=== PATIENT | male | born 1945 | race Caucasian/White ===

== ENCOUNTER 2020-10-27 14:10 | Outpatient (CLI) | payer MEDICARE, SELFPAY ==
[2020-10-27 15:06] LABS: Anion Gap 8 mmol/L (8-16); Blood Urea Nitrogen 14 mg/dL (9-20); Calcium 9.7 mg/dL (8.4-10.2); Carbon Dioxide 26 mmol/L (22-30); Chloride 106 mmol/L (98-107); Estimated Glomerular Filt Rate > 60; Glucose 106 mg/dL (75-110); Potassium 4.3 mmol/L (3.4-5.0); Sodium 140 mmol/L (137-145)
[2020-10-27 15:43] LABS: Hematocrit 44.9 % (42.0-52.0); Hemoglobin 14.7 g/dL (14.0-18.0); Mean Corpuscular HGB Conc 32.7 g/dl (32-36); Mean Corpuscular Hemoglobin 29.4 pg (26-34); Mean Corpuscular Volume 89.8 fl (80-100); Mean Platelet Volume 11.6 fl (7.4-10.4); Platelet Count Result 156 k/mm3 (150-375); Red Cell Distribution Width 13.2 % (11.5-14.5); White Blood Count 9.3 K/mm3 (4.5-10.0)
== END 2020-10-27 14:11 | disposition home or self-care (01) ==
LOC: ANHLAB 14:14
PROVIDERS: PCP Specialist; Visit Provider Specialist
DX: I48.20 Chronic atrial fibrillation, unspecified (principal)
CPT/HCPCS: 36415; 80048; 85027

== ENCOUNTER 2020-11-05 15:43 | Emergency (ER) | payer MEDICARE, SELFPAY ==
--- NOTE | ~2020-11-05 | XR_ITS ---
XR chest 2V DATE: 11/05/2020 16:36 INDICATION: Dyspnea. TECHNIQUE: AP and lateral views COMPARISON: 10/18/2013 and 07/29/2006 2 view chest examinations FINDINGS: No definite negative. Aortic arch calcification. No pulmonary infiltrate or consolidation, pleural effusion or pulmonary vascular congestion or pneumo thorax. Status post lower anterior cervical spine surgical fusion. Degenerative spurring of the thoracic spin e. IMPRESSION: Cardiomegaly Aortic atherosclerosis No active pulmonary disease Reviewed, dictated and finalized at location A.
[2020-11-05 15:48] VITALS: BP 167/89; PULSE 85; RESP 15; TEMP 36.9; O2SAT 95
--- NOTE | 2020-11-05 16:09 | ECG_ITS ---
Measurements Intervals [place] Rate: 69 P: [place]: 0 QRS: 15 QRSD: 115 T: 40 QT: 409 QTc: 439 Interpretive Statements ATRIAL FIBRILLATION LOW QRS VOLTAGE IN LIMB LEADS INTRAVENTRICULAR CONDUCTION DELAY DELAYED PRECORDIAL R/S TRANSITION BASELINE ARTIFACT- II, III, AVF, V6 ABNORMAL ECG Electronically Signed On 11-05-2020 17:54:13 CDT by Jackson Waters D.O.
[2020-11-05 16:16] VITALS: BP 144/84; PULSE 87; RESP 17; O2SAT 95
--- NOTE | 2020-11-05 16:17 | ED.SOB ---
HPI - SOB/Dyspnea General Chief Complaint: Shortness of Breath/Dyspnea Stated Complaint: diff breathing Time Seen by Provider: 11/05/20 15:53 Source: patient Mode of arrival: ambulatory Limitations: no limitations History of Present Illness HPI Narrative: This is a 75 year old male with history of CHF, hyperlipidemia, DM, sleep apnea who presents for evaluation of shortness of breath. He states he developed shortness of breath 2 weeks ago so he made appointment with his [facility], Dr. Lira. He states Dr. Lira placed him on furosemide 40 mg along with his spironolactone. He states he was feeling better until . He states he was placed in Entresto on and he has not felt well since. He reports shortness of breath and anxious. His symptoms are worse at night. He denies chest pain, nausea, vomiting, abdominal pain, fever or worsening leg edema. He reports chronic sob with exertion. He also notes his EF was 35 %. Related Data Home Medications Medication Instructions Recorded Confirmed carvedilol 25 mg tablet 25 mg PO Q12H 06/24/19 09/08/20 rivaroxaban 20 mg tablet 20 mg PO DAILY 06/24/19 09/08/20 spironolactone 25 mg tablet 25 mg PO DAILY 06/24/19 09/08/20 cholecalciferol (vitamin D3) 25 1,000 unit PO DAILY 06/25/19 09/08/20 mcg (1,000 unit) tablet diphenhydramine HCl 25 mg tablet 25 mg PO Q6H PRN 12/22/19 09/08/20 naproxen 220 mg-diphenhydramine 25 1 tablet PO QPM 12/22/19 09/08/20 mg tablet finasteride mg 11/05/20 furosemide 40 PO DAILY 11/05/20 sacubitril-valsartan [Entresto] 11/05/20 Allergies Allergy/AdvReac Type Severity Reaction Status Date / Time Penicillins Allergy Intermediate Rash Verified 11/05/20 15:53 clindamycin Allergy Unknown PT STATES Verified 11/05/20 15:53 BLISTERS ON MY PENIS Macrolide Antibiotics Allergy Unknown PT STATES Verified 11/05/20 15:53 BLISTERS ON MY PENIS vancomycin Allergy Unknown PT STATES Verified 11/05/20 15:53 BLISTERS ON MY PENIS Review of Systems Review of Systems: All systems reviewed & are unremarkable except as noted in HPI and below PMFSH Past Medical History Medical History (Updated 11/05/20 @ 19:10 by Chrissy Grant MD) Afib Asthma Depression Heart disease Hypertension Surgical History Surgical History (Updated 11/05/20 @ 16:22 by Chrissy Grant MD) H/O neck surgery Family History Family History Father Family history of heart disease in male family member before age 55 Social History Social History Smoking status: Never smoker Alcohol intake: current Gender identity (if verbalized by the patient): Male Exam Const: General: alert Nutritional Appearance: obese centrally obese Orientation/consciousness: patient oriented x3 Eyes: EOM: EOMs intact bilaterally Chest: Chest palpation & inspection: normal inspection of the chest Resp: Effort & Inspection: normal respiratory effort and no retractions Auscultation: clear to auscultation bilaterally Other: able to speak in complete sentences Cardio: Rate: regular rate Rhythm: regular rhythm Heart sounds: no murmurs GI: GI Palp: Yes Soft to palpation, No Tenderness to palpation present (GI) and No Guarding due to palpation present (GI) Auscultation: normal bowel sounds Skin: General skin exam: normal color Rashes: no rashes Neuro: General: patient oriented x3, moves all extremities and CN's II-XI intact bilaterally Extrem: General: normal to inspection and no pedal edema Psych: Mental Status: mental status grossly normal Affect: normal affect Course Reevaluation(s) Reevaluation #1: I have discussed with patient plan to discharge. He states he feels better. HE will follow up with PCP and [facility] Date: 11/05/20 Time: 19:07 Consultations Consultation #1: I Discussed
[2020-11-05 16:19] LABS: Basophils Absolute Auto 0.1 K/mm3 (0.0-0.1); Basophils Percent Auto 0.4 % (0.2-1.2); Eosinophils Absolute Auto 0.2 K/mm3 (0-0.3); Eosinophils Percent Auto 1.9 % (0-4.4); Hematocrit 48.5 % (42.0-52.0); Hemoglobin 16.4 g/dL (14.0-18.0); Immature Granulocyte Percent A 0.9 % (0-0.5); Lymphocytes Absolute Auto 2.09 K/mm3 (0.9-3.2); Lymphocytes Percent Auto 18.4 % (18.3-44.2); Mean Corpuscular HGB Conc 33.8 g/dl (32-36); Mean Corpuscular Hemoglobin 29.7 pg (26-34); Mean Corpuscular Volume 87.7 fl (80-100); Mean Platelet Volume 11.3 fl (7.4-10.4); Monocytes Absolute Auto 1.2 K/mm3 (0.1-0.6); Monocytes Percent Auto 10.9 % (2.6-8.5); Neutrophils Absolute Auto 7.7 K/mm3 (1.3-6.7); Neutrophils Percent Auto 67.5 % (45.5-73.1); Platelet Count Result 201 k/mm3 (150-375); Red Blood Count 5.53 M/mm3 (4.6-6.20); White Blood Count 11.4 K/mm3 (4.5-10.0)
[2020-11-05 16:29] LABS: Anion Gap 10 mmol/L (8-16); Blood Urea Nitrogen 18 mg/dL (9-20); Calcium 9.8 mg/dL (8.4-10.2); Carbon Dioxide 26 mmol/L (22-30); Chloride 104 mmol/L (98-107); Estimated CRCL calculation 91 ml/min; Estimated Glomerular Filt Rate > 60; Glucose 115 mg/dL (75-110); Potassium 4.3 mmol/L (3.4-5.0); Sodium 140 mmol/L (137-145)
[2020-11-05 16:34] LABS: Alveolar/Arterial O2 Gradient 20.7 mmHg; Base Excess ABG 3.5 mEq/l (+/-2.0); Carboxyhemoglobin 0.8 % THb (0-2.0); Fractional Inspired Oxygen 21 %; Methemoglobin ABG 0.3 %THb (0-1.5); Oxygen Content ABG 22.2 %vol (16.0-22.0); Oxygen Saturation ABG 98.2 % (95.0-100.0); Oxyhemoglobin 96.8 % THb (90.0-100.0); PCO2 ABG 26.7 mmHg (35.0-45.0); PO2 ABG 97.1 mmHg (80.0-100.0); PO2 FiO2 Ratio Arterial Blood 4.62 %; Reduced Hemoglobin 2.1 %THb (0-5.0); Total Hemoglobin 16.3 g/dL (12.0-18.0)
[2020-11-05 16:35] LABS: Device ROOM AIR; Modified Allen's Test Pass; Site Drawn RIGHT RADIAL; pH ABG 7.571 (7.350-7.450)
[2020-11-05 16:46] VITALS: BP 129/79; PULSE 70; RESP 15; O2SAT 99
[2020-11-05 16:50] LABS: NT Pro B Type Natriuretic Pept 251 pg/mL (5-100); Troponin I < 0.012 ng/mL (0.000-0.034)
[2020-11-05 16:52] LABS: INR 1.3; Partial Thromboplastin Time 31.5 SECONDS (22.3-36.8); Prothrombin Time 16.3 Seconds (11.1-14.7)
[2020-11-05 17:31] VITALS: BP 118/73; PULSE 68; RESP 12; O2SAT 100
[2020-11-05 18:01] VITALS: BP 149/71; PULSE 65; RESP 11; O2SAT 94
[2020-11-05 18:19] LABS: D Dimer 0.27 ug/mL (<0.48)
[2020-11-05] MEDS: LORazepam (*CRX) 0.5 MG TABLET PO (18:50)
[2020-11-05 19:45] VITALS: BP 117/73; PULSE 65; RESP 18; O2SAT 100
== END 2020-11-05 19:45 | disposition home or self-care (01) ==
PROVIDERS: Emergency Provider General Practice; PCP Specialist
DX: F41.9 Anxiety disorder, unspecified (principal); R06.00 Dyspnea, unspecified; I50.9 Heart failure, unspecified; E78.5 Hyperlipidemia, unspecified; E11.9 Type 2 diabetes mellitus without complications; G47.30 Sleep apnea, unspecified; Z79.4 Long term (current) use of insulin; Z79.01 Long term (current) use of anticoagulants; I48.91 Unspecified atrial fibrillation; J45.909 Unspecified asthma, uncomplicated; I70.0 Atherosclerosis of aorta; I45.9 Conduction disorder, unspecified
CPT/HCPCS: 36415; 36600; 71046; 80048; 82375; 82805; 83050; 83880; 84484; 85025; 85380; 85610; 85730; 93005; 99284; A9270

== ENCOUNTER 2020-12-04 19:34 | Emergency (ER) | payer MEDICARE, SELFPAY ==
--- NOTE | ~2020-12-04 | XR_ITS ---
EXAMINATION: XR chest 2V EXAM DATE: 12/04/2020 20:09 INDICATION: Weakness. Hypoglycemia. TECHNIQUE: Frontal and lateral projections of the chest obtained and reviewed. Comparison is made to prior examination from 11/05/2020. FINDINGS: There is left midlung zone granuloma. The lungs are otherwise clear. There are no pleural effusions. Cardiac silhouette is prominent but magnified on this AP technique. There is no pneumot horax suspected. There are mild bony degenerative changes. Cervical fusion hardware. Some bridging t horacic endplate osteophytes. There is aortic arteriosclerosis. There is no significant interval andrade ge. IMPRESSION: No acute cardiopulmonary findings. Reviewed, dictated and finalized at location G.
[2020-12-04 19:35] VITALS: BP 110/58; PULSE 58; RESP 12; TEMP 36.2; O2SAT 96
[2020-12-04 19:50] LABS: Glucose Point of Care 194 mg/dl (65-105)
--- NOTE | 2020-12-04 20:26 | ED.GENADULT ---
HPI - General Adult General Chief complaint: Altered Mental Status Stated complaint: AMS/ low bs Time Seen by Provider: 12/04/20 19:43 History of Present Illness HPI narrative: Patient is a 75-year-old male who presents ER with altered mental status. Patient reports he took 60 units of insulin as he was planning to eat dinner but then did not get around to it. He was found sweaty and altered by his son. EMS arrived and his Accu-Chek was reading is low. He received D10 is now awake alert and oriented x3. He has no complaints. Related Data Home Medications Medication Instructions Recorded Confirmed carvedilol 25 mg tablet 25 mg PO Q12H 06/24/19 12/01/20 rivaroxaban 20 mg tablet 20 mg PO DAILY 06/24/19 12/01/20 spironolactone 25 mg tablet 25 mg PO DAILY 06/24/19 12/01/20 cholecalciferol (vitamin D3) 25 1,000 unit PO DAILY 06/25/19 12/01/20 mcg (1,000 unit) tablet naproxen 220 mg-diphenhydramine 25 1 tablet PO QPM 12/22/19 12/01/20 mg tablet finasteride mg 11/05/20 12/01/20 furosemide 40 PO DAILY 11/05/20 12/01/20 sacubitril-valsartan [Entresto] 11/05/20 12/01/20 Allergies Allergy/AdvReac Type Severity Reaction Status Date / Time Penicillins Allergy Intermediate Rash Verified 12/01/20 11:01 clindamycin Allergy Unknown PT STATES Verified 12/01/20 11:01 BLISTERS ON MY PENIS Macrolide Antibiotics Allergy Unknown PT STATES Verified 12/01/20 11:01 BLISTERS ON MY PENIS vancomycin Allergy Unknown PT STATES Verified 12/01/20 11:01 BLISTERS ON MY PENIS Review of Systems Review of Systems: All systems reviewed & are unremarkable except as noted in HPI and below Constitutional: Constitutional: Denies chills, Denies fever(s) and Denies weakness Cardiovascular: Cardiovascular: Denies chest pain and Denies radiating jaw, neck or arm pain Respiratory: Respiratory: Denies cough and Denies dyspnea Gastrointestinal: Gastrointestinal: Denies abdominal pain, Denies nausea and Denies vomiting [facility] Past Medical History Medical History (Updated 12/04/20 @ 21:27 by David Masters MD) Afib Asthma Depression Heart disease Hypertension Pure hypercholesterolemia, unspecified Subclinical hypothyroidism Type 2 diabetes mellitus with hyperglycemia, with long-term current use of insulin Surgical History Surgical History H/O neck surgery Family History Family History Father Family history of heart disease in male family member before age 55 Social History Social History (Updated 12/01/20 @ 10:59 by Megan Tejeda MA) Smoking status: Never smoker Alcohol intake: current Substance use: current Substance use type: marijuana Other substance usage details: tablet and gimmes Gender identity (if verbalized by the patient): Male Exam Narrative: Exam Narrative: GENERAL: Well-appearing, well-nourished, and in no acute distress. HEAD: Normocephalic, atraumatic. ENT: Mucous membranes moist. NECK: Supple. CHEST: Clear to auscultation. No respiratory distress. HEART: Regular rate and rhythm. Normal peripheral pulses. ABDOMEN: Soft, nontender, nondistended. EXTREMITIES: Normal range of motion. 1+ edema. SKIN: Warm, dry, no rash. NEURO: Alert and oriented x3. Course Course Emergency Course: Patient is eating and drinking without issue. Blood sugar remains within normal limits. Discharge home. Vital Signs Vital signs: Vital Signs Temperature 97.1 F L 12/04/20 19:35 Pulse Rate 58 L 12/04/20 19:35 Respiratory Rate 12 12/04/20 19:35 Blood Pressure 110/58 L 12/04/20 19:35 Pulse Oximetry 96 12/04/20 19:35 Temperature 97.1 F L 12/04/20 19:35 Pulse Rate 58 L 12/04/20 19:35 Respiratory Rate 12 12/04/20 19:35 Blood Pressure 110/58 L 12/04/20 19:35 Pulse Oximetry 96 12/04/20 19:35 Medical Decision Making Vit
[2020-12-04 20:34] LABS: Basophils Percent Auto 0.3 % (0.2-1.2); Eosinophils Absolute Auto 0.3 K/mm3 (0-0.3); Hematocrit 44.3 % (42.0-52.0); Hemoglobin 15.1 g/dL (14.0-18.0); Immature Granulocyte Absolute 0.08 K/mm3 (0.00-0.031); Immature Granulocyte Percent A 0.7 % (0-0.5); Lymphocytes Absolute Auto 1.17 K/mm3 (0.9-3.2); Lymphocytes Percent Auto 9.6 % (18.3-44.2); Mean Corpuscular HGB Conc 34.1 g/dl (32-36); Mean Corpuscular Hemoglobin 30.3 pg (26-34); Mean Corpuscular Volume 88.8 fl (80-100); Mean Platelet Volume 10.7 fl (7.4-10.4); Monocytes Percent Auto 8.3 % (2.6-8.5); Neutrophils Absolute Auto 9.7 K/mm3 (1.3-6.7); Neutrophils Percent Auto 79.1 % (45.5-73.1); Platelet Count Result 154 k/mm3 (150-375); Red Blood Count 4.99 M/mm3 (4.6-6.20); Red Cell Distribution Width 13.2 % (11.5-14.5); White Blood Count 12.2 K/mm3 (4.5-10.0)
[2020-12-04 20:44] LABS: Anion Gap 8 mmol/L (8-16); Blood Urea Nitrogen 13 mg/dL (9-20); Calcium 8.9 mg/dL (8.4-10.2); Carbon Dioxide 28 mmol/L (22-30); Chloride 104 mmol/L (98-107); Estimated CRCL calculation 92 ml/min; Estimated Glomerular Filt Rate > 60; Glucose 92 mg/dL (75-110); Potassium 3.2 mmol/L (3.4-5.0); Sodium 140 mmol/L (137-145)
[2020-12-04 21:01] LABS: Glucose Point of Care 93 mg/dl (65-105)
[2020-12-04 21:45] VITALS: BP 121/79; PULSE 63; RESP 16; O2SAT 100
== END 2020-12-04 21:46 | disposition home or self-care (01) ==
PROVIDERS: Emergency Provider Emergency Medicine; PCP Internal Medicine
DX: E11.649 Type 2 diabetes mellitus with hypoglycemia without coma (principal); Z79.4 Long term (current) use of insulin; I48.91 Unspecified atrial fibrillation; J45.909 Unspecified asthma, uncomplicated; I11.0 Hypertensive heart disease with heart failure; I50.9 Heart failure, unspecified; E78.5 Hyperlipidemia, unspecified
CPT/HCPCS: 36415; 71046; 80048; 82948; 85025; 99283

== ENCOUNTER 2021-11-09 13:38 | Emergency (ER) | payer MEDICARE, SELFPAY ==
--- NOTE | 2021-11-09 13:42 | ED.GENADULT ---
HPI - General Adult General Chief complaint: Upper Respiratory Infection Stated complaint: Not Feeling Well Time Seen by Provider: 11/09/21 14:19 Source: patient and RN notes reviewed Mode of arrival: ambulatory Limitations: no limitations History of Present Illness HPI narrative: 76-year-old male with history of congestive heart failure, A. fib, diabetes presents with concern for 4-day history of abdominal pain, nausea, vomiting, diarrhea, shortness of breath. Reports he took a negative COVID test at home. Reports he took an antidiarrheal pill on Saturday which help with diarrhea, but is since returned. Reports he has been dry heaving today. Reports he has been sipping on water. Reports he feels hot, has not had a fever MD complaint: Nausea, vomiting, diarrhea Related Data Home Medications Medication Instructions Recorded Confirmed rivaroxaban 20 mg tablet (Xarelto) 20 mg PO DAILY 06/24/19 10/24/21 spironolactone 25 mg tablet 25 mg PO DAILY 06/24/19 10/24/21 finasteride 5 mg tablet mg 11/05/20 10/24/21 furosemide 40 mg tablet 40 PO DAILY 11/05/20 10/24/21 sertraline 25 mg tablet 25 mg PO DAILY 04/12/21 10/24/21 carvedilol 25 mg tablet 12.5 mg PO BID 10/24/21 10/24/21 cholecalciferol (vitamin D3) 25 1,000 unit PO .COMPLEX 10/24/21 10/24/21 mcg (1,000 unit) tablet (Vitamin D3) sacubitril 24 mg-valsartan 26 mg PO BID 10/24/21 10/24/21 tablet (Entresto) insulin lispro 200 unit/mL (3 mL) unit subcut 11/09/21 subcutaneous pen (Humalog KwikPen U-200 Insulin) trazodone 100 mg tablet tablet 11/09/21 Allergies Allergy/AdvReac Type Severity Reaction Status Date / Time Penicillins Allergy Intermediate Rash Verified 10/24/21 13:59 clindamycin Allergy Unknown PT STATES Verified 10/24/21 13:59 BLISTERS ON MY PENIS Macrolide Antibiotics Allergy Unknown PT STATES Verified 10/24/21 13:59 BLISTERS ON MY PENIS vancomycin Allergy Unknown PT STATES Verified 10/24/21 13:59 BLISTERS ON MY PENIS Review of Systems Review of Systems: CONSTITUTIONAL: Report malaise, sweats. Denies fever. EYES: Denies visual changes, redness, or discharge. ENT: Reports rhinorrhea. Denies congestion, sinus pain, otalgia and sore throat. CARDIOVASCULAR: Denies chest pain, palpitations, or edema. RESPIRATORY: Denies cough. Reports dyspnea. GASTROINTESTINAL: Reports abdominal pain, nausea, vomiting, diarrhea SKIN: Denies rash or itching. MUSCULOSKELETAL: Denies myalgia. NEUROLOGIC: Denies headache. All systems reviewed & are unremarkable except as noted in HPI and below PMFSH Past Medical History Medical History Afib Anxiety Asthma Congestive heart failure Depression Heart disease Hypertension Pure hypercholesterolemia, unspecified Subclinical hypothyroidism Type 2 diabetes mellitus with hyperglycemia, with long-term current use of insulin Surgical History Surgical History H/O neck surgery Family History Family History Father Family history of heart disease in male family member before age 55 Social History Social History Smoking status: Unknown if ever smoked Alcohol intake: current Alcohol use details: 3-4 per month Substance use: current Substance use type: marijuana Other substance usage details: tablet and gimmes Gender identity (if verbalized by the patient): Male Comments At time of signature, agree with nursing past medical, surgical, social and family history. There is no relevant family history pertinent to the presenting complaint Exam Narrative: GENERAL: Nontoxic-appearing and in no acute distress. HEAD: Normocephalic EYES: PERRLA, conjunctivae clear ENT: Nares clear, clear discharge. Mucous memb
[2021-11-09 13:44] VITALS: BP 103/68; PULSE 86; RESP 20; TEMP 36; O2SAT 99
[2021-11-09 14:14] LABS: Glucose Point of Care 204 mg/dl (65-105)
[2021-11-09] MEDS: ONDANSETRON HCL ODT 4 MG TABLET SUBLINGUAL (14:34)
== END 2021-11-09 15:07 | disposition short-term general hospital (02) ==
PROVIDERS: Emergency Provider Nurse Practitioner; PCP Internal Medicine
DX: R06.02 Shortness of breath (principal); Z20.822 Contact with and (suspected) exposure to COVID-19; E11.9 Type 2 diabetes mellitus without complications; Z79.4 Long term (current) use of insulin; I48.91 Unspecified atrial fibrillation; I11.0 Hypertensive heart disease with heart failure; I50.9 Heart failure, unspecified; E78.00 Pure hypercholesterolemia, unspecified; E03.8 Other specified hypothyroidism; F41.9 Anxiety disorder, unspecified; F32.A Depression, unspecified
CPT/HCPCS: 82948; 87426; 87804; 99212; A9270; C9803; G0463

== ENCOUNTER 2021-11-09 15:35 | Inpatient (IN) | payer MEDICARE, SELFPAY ==
--- NOTE | ~2021-11-09 | CT_ITS ---
EXAMINATION: CT abdomen pelvis wo con DATE: 11/09/2021 18:49 INDICATION: Upper abdominal pain radiating to back. Nausea, vomiting and diarrhea for 4 days. TECHNIQUE: Computed tomography (CT) of the abdomen and pelvis was performed without intravenous contr ast. Automated exposure control and iterative reconstruction technique were employed. Exam dose: 156 5.15 mGy-cm total exam DLP. COMPARISON: None. FINDINGS: The lung bases are clear. Heart size is normal. No pericardial or pleural effusion. 2.6 cm hepatic dome cyst. 11 mm lateral segment left hepatic cyst. No bile duct dilatation. Normal splenic size. No pancreatic mass lesion, calcification or ductal dilatation. Normal morphology of the adrenal glands. No renal mass lesion or urinary tract calculus or hydroureteronephrosis. There is prostate enlargement and calcification. Is moderate diffuse thickening of the urinary bladde r wall, likely due to the prostate enlargement. Small bilateral fat-containing inguinal hernias. Normal appendix. Fluid levels in the right colon are noted, consistent with history of diarrhea. No bowel obstruction, bowel wall thickening, pneumatosis or intraperitoneal free air is detected. There is prominent calcification of the celiac artery, superior mesenteric artery, renal arteries, es pecially on the right. There is prominent abdominal aortic calcification without aneurysm. No intraperitoneal or retroperitoneal or pelvic mass lesion or adenopathy or ascites. Very small fat-containing umbilical hernia. There is extensive degenerative change of the thoracic spine including diffuse idiopathic skeletal hy perostosis. There is prominent degenerative disc disease of the lumbar spine including severe degenerative disc d isease and mild retrolisthesis at L2-3, L3-4 and L4-5. IMPRESSION: No CT evidence of pancreatitis. Pancreatitis can occur in the absence of CT positive fin dings at the pancreas. Clinical correlation and correlation with appropriate serum enzymes is recomme nded. Levels are noted in the colon, consistent with history of diarrhea; no bowel obstruction Hepatic cysts Prostate enlargement and moderate thickening of the urinary bladder wall Reviewed, dictated and finalized at Location [facility]. Reviewed, dictated and finalized at location A. IMPRESSION: No CT evidence of pancreatitis. Pancreatitis can occur in the abse nce of CT positive findings at the pancreas. Clinical correlation and correlati on with appropriate serum enzymes is recommended. Levels are noted in the colon, consistent with history of diarrhea; no bowel ob struction Hepatic cysts Prostate enlargement and moderate thickening of the urinary bladder wall
--- NOTE | ~2021-11-09 | XR_ITS ---
XR chest 2V DATE: 11/09/2021 18:56 INDICATION: Shortness of breath TECHNIQUE: AP and lateral views COMPARISON: 12/04/2020 AP and lateral chest FINDINGS: Normal heart size. There is aortic calcification. No hilar or mediastinal enlargement. N o pulmonary infiltrate or consolidation, pulmonary vascular congestion or pleural effusion or pneumot horax. Status post anterior cervical spine surgical fusion. Degenerative spurring of the thoracic spine. IMPRESSION: No active cardiopulmonary disease Reviewed, dictated and finalized at location A.
[2021-11-09 15:57] VITALS: BP 105/58; PULSE 81; RESP 20; TEMP 36.6; O2SAT 100
--- NOTE | 2021-11-09 16:05 | ECG_ITS ---
Measurements Intervals [place] Rate: 74 P: [place]: 0 QRS: -17 QRSD: 110 T: 64 QT: 407 QTc: 454 Interpretive Statements ATRIAL FIBRILLATION LOW QRS VOLTAGE IN EXTREMITY LEADS [QRS DEFLECTION < 0.5 mV IN LIMB LEADS] POOR R-WAVE PROGRESSION CANNOT RULE OUT OLD INFERIOR MYOCARDIAL INFARCTION COMPARED TO ECG 11/05/2020 15:51:34 NO SIGNIFICANT CHANGE Electronically Signed On 11-09-2021 20:41:01 CDT by Kamilla Emmanuel M.D.
[2021-11-09 16:23] LABS: Basophils Percent Auto 0.1 % (0.2-1.2); Eosinophils Absolute Auto 0.2 K/mm3 (0-0.3); Eosinophils Percent Auto 1.6 % (0-4.4); Hematocrit 48.9 % (42.0-52.0); Hemoglobin 16.6 g/dL (14.0-18.0); Immature Granulocyte Absolute 0.15 K/mm3 (0.00-0.031); Immature Granulocyte Percent A 1.1 % (0-0.5); Lymphocytes Absolute Auto 1.42 K/mm3 (0.9-3.2); Lymphocytes Percent Auto 10.1 % (18.3-44.2); Mean Corpuscular HGB Conc 33.9 g/dl (32-36); Mean Corpuscular Hemoglobin 30.3 pg (26-34); Mean Corpuscular Volume 89.2 fl (80-100); Mean Platelet Volume 10.8 fl (7.4-10.4); Monocytes Absolute Auto 1.4 K/mm3 (0.1-0.6); Monocytes Percent Auto 9.6 % (2.6-8.5); Neutrophils Percent Auto 77.5 % (45.5-73.1); Platelet Count Result 232 k/mm3 (150-375); Red Blood Count 5.48 M/mm3 (4.6-6.20); Red Cell Distribution Width 13.1 % (11.5-14.5); White Blood Count 14.1 K/mm3 (4.5-10.0)
[2021-11-09 17:10] LABS: Alanine Aminotransferase 19 U/L (6-50); Albumin Level 4.6 g/dL (3.5-5.1); Alkaline Phosphatase 53 U/L (38-126); Anion Gap 11 mmol/L (8-16); Aspartate Amino Transferase 26 U/L (17-59); Blood Urea Nitrogen 31 mg/dL (9-20); Calcium 9.1 mg/dL (8.4-10.2); Carbon Dioxide 23 mmol/L (22-30); Chloride 101 mmol/L (98-107); Estimated CRCL calculation 62 ml/min; Estimated Glomerular Filt Rate 49; Glucose 207 mg/dL (65-110); Lipase 1085 U/L (23-300); Sodium 135 mmol/L (137-145)
[2021-11-09 17:26] LABS: Bilirubin,Total 1.2 mg/dL (0.2-1.3)
[2021-11-09 17:46] LABS: Appearance Urine Cloudy (Clear); Bilirubin Urine 1+ (Negative); Color Urine Yellow (Yellow); Glucose Urine UA Negative (Negative); Ketones Urine Trace mg/dL (Negative); Leukocyte Esterase Ur 1+ LEU/UL (Negative); Nitrate Urine Negative (Negative); Protein Urine Trace mg/dL (Negative); Urobilinogen Urine 0.2 mg/dL (<2.0); pH Urine 5.5 (5.0-9.0)
[2021-11-09 17:58] LABS: Amorphous Sediment Urine Few; Bacteria Urine Trace /hpf; Hyaline Casts Urine 30-49 /lpf; Mucus Urine Heavy /lpf; Squamous Epithelial Cell Urine Many /hpf (Few); WBC Clumps Urine Present /HPF; WBC Urine >75 /hpf
[2021-11-09 18:00] LABS: Add Urine Microscopic? YES; Blood Urine Trace-Intact (Negative)
--- NOTE | 2021-11-09 18:42 | ED.NAVMDI ---
HPI - Nausea/Vomiting/Diarrhea General Chief complaint: Nausea/Vomiting/Diarrhea Stated complaint: from UC, GI sx & SOB Time Seen by Provider: 11/09/21 18:15 Source: patient Mode of arrival: ambulatory Limitations: no limitations History of Present Illness HPI Narrative: This is a 76-year-old male that presents to the emergency department for abdominal pain and vomiting. Ongoing over the last couple of days. Does report some diarrhea as well. Reports he was recently started on Ozempic for his diabetes. He has been feeling more short of breath today. Denies fever, cough, or chest pain. Related Data Home Medications Medication Instructions Recorded Confirmed rivaroxaban 20 mg tablet (Xarelto) 20 mg PO DAILY 06/24/19 10/24/21 spironolactone 25 mg tablet 25 mg PO DAILY 06/24/19 10/24/21 finasteride 5 mg tablet mg 11/05/20 10/24/21 furosemide 40 mg tablet 40 PO DAILY 11/05/20 10/24/21 sertraline 25 mg tablet 25 mg PO DAILY 04/12/21 10/24/21 carvedilol 25 mg tablet 12.5 mg PO BID 10/24/21 10/24/21 cholecalciferol (vitamin D3) 25 1,000 unit PO .COMPLEX 10/24/21 10/24/21 mcg (1,000 unit) tablet (Vitamin D3) sacubitril 24 mg-valsartan 26 mg PO BID 10/24/21 10/24/21 tablet (Entresto) insulin lispro 200 unit/mL (3 mL) unit subcut 11/09/21 subcutaneous pen (Humalog KwikPen U-200 Insulin) trazodone 100 mg tablet tablet 11/09/21 Allergies Allergy/AdvReac Type Severity Reaction Status Date / Time Penicillins Allergy Intermediate Rash Verified 11/09/21 19:37 clindamycin Allergy Unknown PT STATES Verified 11/09/21 19:37 BLISTERS ON MY PENIS Macrolide Antibiotics Allergy Unknown PT STATES Verified 11/09/21 19:37 BLISTERS ON MY PENIS vancomycin Allergy Unknown PT STATES Verified 11/09/21 19:37 BLISTERS ON MY PENIS Review of Systems Review of Systems: CONSTITUTIONAL: Denies fever CARDIOVASCULAR: Denies chest pain, or edema. RESPIRATORY: Reports dyspnea. GASTROINTESTINAL: Reports abdominal pain, nausea, vomiting, and diarrhea. GENITOURINARY: Denies dysuria All systems reviewed & are unremarkable except as noted in HPI and below PMFSH Past Medical History Medical History Afib Anxiety Asthma Congestive heart failure Depression Heart disease Hypertension Pure hypercholesterolemia, unspecified Subclinical hypothyroidism Type 2 diabetes mellitus with hyperglycemia, with long-term current use of insulin Surgical History Surgical History H/O neck surgery Family History Family History Father Family history of heart disease in male family member before age 55 Social History Social History Smoking status: Unknown if ever smoked Alcohol intake: current Alcohol use details: 3-4 per month Substance use: current Substance use type: marijuana Other substance usage details: tablet and gimmes Gender identity (if verbalized by the patient): Male Exam Narrative: GENERAL: Well-appearing, well-nourished, and in no acute distress. HEAD: Normocephalic, atraumatic. EYES: EOMI. CHEST: Clear to auscultation. No respiratory distress. No wheezes rales or rhonchi HEART: Regular rate and rhythm. No murmur heard. Normal peripheral pulses. ABDOMEN: Soft, nondistended, normal active bowel sounds. Tender to palpation in epigastrium, without guarding EXTREMITIES: Normal range of motion. No edema. SKIN: Warm, dry, no rash. NEURO: No focal deficits. Alert and oriented x3. PSYCH: Normal mood and affect Course Consultations Consultation #1: Spoke with hospitalist about patient and work-up who accepts admission Date: 11/09/21 Vital Signs Vital signs: Vital Signs Temperature 97.9 F 11/09/21 15:57 Pulse Rate
[2021-11-09 19:02] VITALS: BP 88/63; PULSE 84; RESP 16; TEMP 36.6; O2SAT 98
[2021-11-09 19:17] VITALS: BP 100/70; PULSE 83; RESP 16; O2SAT 99
[2021-11-09] MEDS: PROCHLORPERAZINE EDISYLATE 10 MG/2 ML VIAL IV PUSH (19:37)
[2021-11-09] MEDS: SODIUM CHLORIDE 0.9% IV 500 ML 999 ML IV CONT (19:37)
[2021-11-09 19:48] LABS: NT Pro B Type Natriuretic Pept 238 pg/mL (5-100)
[2021-11-09 19:57] VITALS: BP 110/70
[2021-11-09 21:07] VITALS: BP 133/73; PULSE 78; RESP 18; O2SAT 98
[2021-11-09] MEDS: SODIUM CHLORIDE 0.9% IV 1,000 ML 500 ML IV CONT (21:08)
[2021-11-09 21:14] LABS: Glucose Point of Care 185 mg/dl (65-105)
--- NOTE | 2021-11-09 21:50 | ADMGEN ---
This patient, Mark Gonzalez, was admitted to 3 [facility] Surg Room 320-01. Patient/family oriented to hospital policies and general routines including ID bracelet, bed and alarms, visiting hours, pain management, procedures, bathroom and other care routines, personal items, smoking policy, room service/diet, and visiting hours. Information on how to activate the Rapid Response Team has been discussed. Patient/Family are encouraged to report perceived risks to care and to ask questions if they do not understand what they are told or what they should do.
[2021-11-09 22:00] VITALS: BP 127/77; PULSE 89; RESP 16; TEMP 36.2; O2SAT 100
[2021-11-09 22:30] VITALS: BMI 40.8
[2021-11-09] MEDS: SODIUM CHLORIDE 0.9% IV 1,000 ML 125 ML IV CONT (23:00)
[2021-11-10 05:07] VITALS: BP 111/57; PULSE 68; RESP 16; TEMP 36.2; O2SAT 98
--- NOTE | 2021-11-10 05:52 | PM.IMHP ---
H&P: HPI History of Present Illness Date/Time: 11/10/21 05:52 Chief Complaint: Nausea vomiting and diarrhea since Saturday Narrative: 76-year-old male with past medical history of CHF, chronic atrial fibrillation, insulin-dependent diabetes mellitus, and BPH who presented to the ER with nausea vomiting and diarrhea. The patient reports that he was started on Ozempic 2 weeks ago. On Saturday he the did his 1st full dose of medications. On Saturday he subsequently developed severe intractable nausea and vomiting after his several days of vomiting he proceeded to have dry heaves. He has not had any bilious emesis or coffee-ground emesis. He did have accompanying severe diarrhea with watery stools. He is having stools multiple times a day too numerous to count. Over the last couple of days he has noticed some blood on the toilet paper but has associated excoriation of his perineal tissues. He thinks he also has history of hemorrhoids as well. He has been having some lightheadedness with standing over the last couple of days but that is improved after IV fluids in the ER. The ER had reported the patient was having epigastric abdominal pain. The patient actually denies having significant epigastric abdominal pain until after he had episodes of vomiting. Instead most of his abdominal pain was generalized in the periumbilical and lower quadrant since was crampy in nature and proceeded episodes of diarrhea. He denies any fevers or chills or recent ill contacts. The patient reports his last hemoglobin A1c was actually 6.5 prior to Ozempic initiation. He was started on Ozempic to in an effort to help with potential weight loss. Review of Systems Review of Systems: 12 systems were reviewed with pertinent positives and negatives per HPI. Except as documented in the HPI, all other systems were reviewed and are negative. [facility] Past Medical History Medical History Anxiety Asthma Chronic atrial fibrillation On Xarelto. With multiple followed attempts at cardioversion. Congestive heart failure Echocardiogram spring 2020 EF 35-40% without significant valvular abnormality Depression Heart disease Hypertension Meralgia paresthetica of left side Morbid obesity with BMI of 40.0-44.9, adult Pure hypercholesterolemia, unspecified Subclinical hypothyroidism Type 2 diabetes mellitus Hemoglobin A1c 6.5 10/24/2021 Surgical History Surgical History H/O neck surgery Family History Family History Father Family history of heart disease in male family member before age 55 Social History Social History (Updated 11/11/21 @ 00:17 by Georgina Hooper DO) Social History: Code status: Full code Healthcare power of tearer: Gurpreet (oldest son) Smoking status: Never smoker Second hand tobacco smoke exposure: No Alcohol intake: current Alcohol use details: 3-4 per month Substance use: current Substance use type: marijuana Additional living arrangements comments: He has been for several years. He lives in his own home. 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 Gender identity (if verbalized by the patient): Male Spiritual care concerns: No Meds Home Medications and Allergies Home Medications Medication Instructions Recorded Confirmed Type rivaroxaban 20 mg tablet (Xarelto) 20 mg PO HS 06/24/19 11/09/21 History spironolactone 25 mg tablet 25 mg PO DAILY 06/24/19 11/09/21 History finasteride 5 mg tablet 5 mg PO HS 11/05/20 11/09/21 History furosemide 40 mg tablet 40 mg PO DAILY 11/05/20 11/09/21 History sertraline 25 mg tablet 25 mg PO DAILY 04/12/21 11/09/21 History carvedilol 25 mg tablet 12.5 mg PO BID 10/24/21 11/09/21 History insulin glargine 100 unit/mL (3 60 unit subcut HS 11/09/21 11/09/21 History mL) subcutaneous
[2021-11-10 06:19] LABS: Hematocrit 44.3 % (42.0-52.0); Hemoglobin 15.5 g/dL (14.0-18.0); Mean Corpuscular Hemoglobin 30.4 pg (26-34); Mean Corpuscular Volume 86.9 fl (80-100); Mean Platelet Volume 10.8 fl (7.4-10.4); Platelet Count Result 184 k/mm3 (150-375); Red Cell Distribution Width 12.9 % (11.5-14.5); White Blood Count 9.6 K/mm3 (4.5-10.0)
[2021-11-10 06:50] LABS: Alanine Aminotransferase 12 U/L (6-50); Albumin Level 3.2 g/dL (3.5-5.1); Alkaline Phosphatase 25 U/L (38-126); Anion Gap 9 mmol/L (8-16); Aspartate Amino Transferase 22 U/L (17-59); Blood Urea Nitrogen 30 mg/dL (9-20); Calcium 7.3 mg/dL (8.4-10.2); Carbon Dioxide 18 mmol/L (22-30); Chloride 107 mmol/L (98-107); Estimated CRCL calculation 84 ml/min; Estimated Glomerular Filt Rate > 60; Glucose 155 mg/dL (65-110); Lipase 294 U/L (23-300); Potassium 3.6 mmol/L (3.4-5.0); Sodium 134 mmol/L (137-145)
[2021-11-10 08:00] VITALS: PULSE 68; RESP 16; O2SAT 98
[2021-11-10 08:08] LABS: Glucose Point of Care 191 mg/dl (65-105)
--- NOTE | 2021-11-10 08:25 | PM.IMPN ---
Progress Note: A&P Assessment and Plan (1) Vomiting and diarrhea: Code(s): R11.10 - Vomiting, unspecified; R19.7 - Diarrhea, unspecified Status: Acute Assessment and Plan: Patient presents with nausea, vomiting, and diarrhea since Saturday after his 1st dose of Ozempic on Saturday. Patient's ER labs were significant for mildly elevated lipase, which has since normalized. Patient continues to have persistent diarrhea. At this time it was thought that the likely cause is the patient Ozempic, however he did have an abnormal UA, and we are following for the culture report. A.m. labs Advanced his tolerated IV fluid resuscitation 100mls/hr (2) Abnormal urinalysis: Code(s): R82.90 - Unspecified abnormal findings in urine Status: Acute Assessment and Plan: UA was abnormal in the ER with leuk esterase, more than 75 urine wbc's, heavy mucus, and CT showed bladder wall thickening. Urine culture pending. He had leukocytosis of 14.1 yesterday on admission, lactic acid 2.0. Urine culture pending, will hold antibiotics at this time. (3) Elevated lipase: Code(s): R74.8 - Abnormal levels of other serum enzymes Status: Acute Assessment and Plan: Lipase yesterday 1085, today to 294 (normal). CT showed no evidence of pancreatitis, levels in the colon consistent with diarrhea, no bowel obstruction, prostate enlargement and moderate thickening of the urinary bladder wall. Continue IVF Trend lipase (4) Afib: Code(s): I48.91 - Unspecified atrial fibrillation Status: Acute Assessment and Plan: Patient with chronic AFIB on Rivaroxaban and carvedilol. EKG shows AFIB with normal rate. Will continue home meds at this time. 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 (6) Type 2 diabetes mellitus with hyperglycemia, with long-term current use of insulin: Code(s): E11.65 - Type 2 diabetes mellitus with hyperglycemia; Z79.4 - ad terminal makeup operator (current) use of insulin Status: Acute Assessment and Plan: Patient has been NPO, will hold insulin at this time until patient advances his diet. Accuchecks, mod dose SSI, diabetic diet once advanced. Continue to check and adjust insulin as diet is advanced. (7) Essential hypertension: Code(s): I10 - Essential (primary) hypertension Status: Acute Assessment and Plan: Holding lasix and spironolactone as patient was quite dry upon admission. Subjective Date/time seen: 11/10/21 08:25 Interval history: 76-year-old male with history of AFib, hypertension, diabetes, hypothyroidism, anxiety, who presents for nausea, vomiting, and diarrhea since Saturday after his first dose of Ozempic on Saturday. He continues to have diarrhea, but no nausea or vomiting. He denies chest pain, shortness a breath, lower extremity swelling. He was enjoying his clear liquid diet meal when I saw him. He had no questions for me at this time. Review of Systems Review of Systems: All systems reviewed & are unremarkable except as noted in HPI and below Exam Narrative: GENERAL APPEARANCE: Alert and oriented x 3, in no apparent distress. HEENT: PERRL, EOMI. Sclerae anicteric. Moist mucous membranes. NECK: Supple. No JVD or obvious carotid bruits. RESPIRATORY: Respirations are nonlabored. Breath sounds are equal and clear bilaterally. No wheezes, Rhonchi, or rales. CARDIOVASCULAR: Regular rate and rhythm with normal S1-S2. No murmurs, gallops, or rubs. GASTROINTESTINAL: Soft, protuberant, and benign. No mass, tenderness, guarding, or rebound. No organomegaly or hernia. Bowel sounds are present. SKIN: Warm, dry, well perfused. Good turgor. No lesions, nodules, or rashes noted. EXTREMITIES: No cyanosis, clubbing, or edema. Radial and pedal pulses intact.
[2021-11-10 10:26] VITALS: PULSE 64
[2021-11-10] MEDS: carvediloL 12.5 MG TABLET PO ×2 (10:26→17:34)
[2021-11-10] MEDS: SERTRALINE HCL 25 MG TABLET PO (10:26)
[2021-11-10] MEDS: SODIUM CHLORIDE 0.9% IV 1,000 ML 100 ML IV CONT ×2 (10:30→21:10)
[2021-11-10 11:52] LABS: Glucose Point of Care 170 mg/dl (65-105)
--- NOTE | 2021-11-10 12:32 | PCCCNOTE ---
On 11/10/21, the student, [Misti Goodwin], provided care and completed [facility] documentation on this patient. I have reviewed the student's documentation and agree with the findings.
[2021-11-10 13:43] VITALS: BP 107/63; PULSE 72; RESP 18; TEMP 36.7; O2SAT 96
[2021-11-10 16:11] LABS: Glucose Point of Care 181 mg/dl (65-105)
[2021-11-10 17:34] VITALS: PULSE 66
[2021-11-10] MEDS: FINASTERIDE 5 MG TABLET PO (21:09)
[2021-11-10] MEDS: RIVAROXABAN 20 MG TABLET PO (21:09)
[2021-11-10] MEDS: traZODone HCL 50 MG TABLET 100 MG BY MOUTH (21:09)
[2021-11-10] MEDS: SIMVASTATIN 20 MG TABLET PO (21:10)
[2021-11-10] MEDS: INSULIN GLARGINE (*BKC) 100 UNITS/ML 60 UNITS SUB-Q (21:10)
[2021-11-10 21:13] LABS: Toxigenic C. Diff NEGATIVE (NEGATIVE)
[2021-11-10 21:50] VITALS: BP 117/67; PULSE 72; RESP 16; TEMP 37.2; O2SAT 100
[2021-11-11 00:51] LABS: Glucose Point of Care 187 mg/dl (65-105)
[2021-11-11 05:04] VITALS: BP 115/60; PULSE 75; RESP 16; TEMP 36.8; O2SAT 98
[2021-11-11] MEDS: DIPHENOXYLATE/ATROPINE (*CRX) 2.5 MG TABLET 1 TABLET PO ×4 (06:12→20:52)
[2021-11-11 08:15] LABS: Glucose Point of Care 186 mg/dl (65-105)
[2021-11-11 08:23] LABS: Basophils Percent Auto 0.3 % (0.2-1.2); Eosinophils Absolute Auto 0.1 K/mm3 (0-0.3); Eosinophils Percent Auto 1.3 % (0-4.4); Hematocrit 46.7 % (42.0-52.0); Hemoglobin 16.1 g/dL (14.0-18.0); Immature Granulocyte Absolute 0.14 K/mm3 (0.00-0.031); Immature Granulocyte Percent A 1.3 % (0-0.5); Lymphocytes Absolute Auto 1.13 K/mm3 (0.9-3.2); Lymphocytes Percent Auto 10.2 % (18.3-44.2); Mean Corpuscular HGB Conc 34.5 g/dl (32-36); Mean Corpuscular Hemoglobin 30.1 pg (26-34); Mean Corpuscular Volume 87.3 fl (80-100); Mean Platelet Volume 10.3 fl (7.4-10.4); Monocytes Percent Auto 9.2 % (2.6-8.5); Neutrophils Absolute Auto 8.7 K/mm3 (1.3-6.7); Neutrophils Percent Auto 77.7 % (45.5-73.1); Platelet Count Result 174 k/mm3 (150-375); Red Blood Count 5.35 M/mm3 (4.6-6.20); Red Cell Distribution Width 13.2 % (11.5-14.5); White Blood Count 11.1 K/mm3 (4.5-10.0)
[2021-11-11 08:34] LABS: Alanine Aminotransferase 12 U/L (6-50); Albumin Level 2.8 g/dL (3.5-5.1); Alkaline Phosphatase 41 U/L (38-126); Anion Gap 9 mmol/L (8-16); Aspartate Amino Transferase 12 U/L (17-59); Bilirubin,Total 0.7 mg/dL (0.2-1.3); Blood Urea Nitrogen 19 mg/dL (9-20); Calcium 7.3 mg/dL (8.4-10.2); Carbon Dioxide 17 mmol/L (22-30); Chloride 108 mmol/L (98-107); Estimated CRCL calculation 93 ml/min; Estimated Glomerular Filt Rate > 60; Glucose 190 mg/dL (65-110); Lipase 304 U/L (23-300); Potassium 3.2 mmol/L (3.4-5.0); Sodium 134 mmol/L (137-145)
--- NOTE | 2021-11-11 09:03 | PM.IMPN ---
Progress Note: A&P Assessment and Plan (1) Vomiting and diarrhea: Code(s): R11.10 - Vomiting, unspecified; R19.7 - Diarrhea, unspecified Status: Acute Assessment and Plan: Patient presents with nausea, vomiting, and diarrhea since Saturday after his 1st dose of Ozempic on Saturday. Patient's ER labs were significant for mildly elevated lipase, which has since normalized. Patient continues to have persistent diarrhea. He did not eat any of his dinner. At this time it was thought that the likely cause is the patient Ozempic, vs UTI w/ GBS. A.m. labs Diet has been advanced but he did not tolerate this. I have added clear Ensure to his meals, which he believes he can tolerate. IV fluid resuscitation 100mls/hr will continue given his continued GI losses. Zofran added PRN for nausea- Will check EKG for QT prolongation with levaquin. C-Diff negative. Stool cultures pending. Will order blood cultures given recent deterioration of symptoms. (2) Abnormal urinalysis: Code(s): R82.90 - Unspecified abnormal findings in urine Status: Acute (3) Elevated lipase: Code(s): R74.8 - Abnormal levels of other serum enzymes Status: Acute Assessment and Plan: Lipase 304. CT showed no evidence of pancreatitis, levels in the colon consistent with diarrhea, no bowel obstruction, prostate enlargement and moderate thickening of the urinary bladder wall. Continue IVF Trend lipase Patient has continued nausea and vomiting. (4) Afib: Code(s): I48.91 - Unspecified atrial fibrillation Status: Acute Assessment and Plan: Patient with chronic AFIB on Rivaroxaban and carvedilol. He is well rate controlled at this time. EKG shows AFIB with normal rate. Will continue to monitor. 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 (6) Type 2 diabetes mellitus with hyperglycemia, with long-term current use of insulin: Code(s): E11.65 - Type 2 diabetes mellitus with hyperglycemia; Z79.4 - supervisor intermediates (current) use of insulin Status: Acute Assessment and Plan: Patient has is still not tolerating PO intake at this time, will hold insulin at this time until patient advances his diet. Accuchecks, mod dose SSI, diabetic diet once advanced. Continue to check and adjust insulin as diet is advanced. (7) Essential hypertension: Code(s): I10 - Essential (primary) hypertension Status: Acute Assessment and Plan: Holding lasix and spironolactone as patient was quite dry upon admission. (8) UTI (urinary tract infection): Code(s): N39.0 - Urinary tract infection, site not specified Status: Acute Assessment and Plan: Today, patient endorses burning with urination and difficulty initiating a stream. Urine culture showed group B strep. UA was abnormal in the ER with leuk esterase, more than 75 urine wbc's, heavy mucus, and CT showed bladder wall thickening. WBC 11 today. Levofloxacin started given patient's PCN allergy. Continue to trend infectious markers. Subjective Date/time seen: 11/11/21 09:03 Interval history: 76-year-old male with history of AFib, hypertension, diabetes, hypothyroidism, anxiety, who presents for nausea, vomiting, and diarrhea since Saturday after his first dose of Ozempic on Saturday. He continues to have diarrhea, but no nausea or vomiting. He denies chest pain, shortness a breath, lower extremity swelling. He is having worse nausea and dry heaves today, and his diarrhea continues. He is not able to tolerate a full diet for breakfast and has no appetite for lunch. He did say he would try Ensure drinks if we could provide those. Review of Systems Review of Systems: All systems reviewed & are unremarkable except as noted in HP
[2021-11-11 10:48] VITALS: PULSE 83
[2021-11-11] MEDS: carvediloL 12.5 MG TABLET PO ×2 (10:48→18:24)
[2021-11-11] MEDS: SODIUM CHLORIDE 0.9% IV 1,000 ML 100 ML IV CONT ×2 (10:49→22:45)
[2021-11-11 12:14] LABS: Glucose Point of Care 211 mg/dl (65-105)
[2021-11-11] MEDS: INSULIN ASPART (*BKC) 100 UNITS/ML SUB-Q (12:18)
[2021-11-11] MEDS: SERTRALINE HCL 25 MG TABLET PO (12:18)
[2021-11-11 14:00] VITALS: BP 119/87; PULSE 83; RESP 20; TEMP 35.7; O2SAT 98
[2021-11-11] MEDS: ONDANSETRON INJ 4 MG/2 ML VIAL IV PUSH (14:14)
[2021-11-11 17:01] LABS: Glucose Point of Care 193 mg/dl (65-105)
--- NOTE | 2021-11-11 18:58 | ECG_ITS ---
Measurements Intervals [place] Rate: 79 P: [place]: 0 QRS: -15 QRSD: 107 T: 45 QT: 411 QTc: 472 Interpretive Statements ATRIAL FIBRILLATION WITH ABERRANT CONDUCTION OR VENTRICULAR PREMATURE COMPLEXES LOW QRS VOLTAGE [QRS DEFLECTION < 0.5/1.0 mV IN LIMB/CHEST LEADS] POSSIBLE ANTERIOR MYOCARDIAL INFARCTION , PROBABLY OLD [30 ms Q WAVE IN V3/V4, OR R < 0.2 mV IN V4] ABNORMAL ECG COMPARED TO ECG 11/09/2021 16:08:12 ABERRANT CONDUCTION OF SUPRAVENTRICULAR BEAT(S) NOW PRESENT Electronically Signed On 11-12-2021 11:00:32 CDT by Stevie Mota M.D.
[2021-11-11] MEDS: INSULIN GLARGINE (*BKC) 100 UNITS/ML 60 UNITS SUB-Q (20:53)
[2021-11-11] MEDS: RIVAROXABAN 20 MG TABLET PO (20:54)
[2021-11-11] MEDS: FINASTERIDE 5 MG TABLET PO (20:54)
[2021-11-11] MEDS: SIMVASTATIN 20 MG TABLET PO (20:54)
[2021-11-11] MEDS: traZODone HCL 50 MG TABLET 100 MG BY MOUTH (20:54)
[2021-11-11 22:00] VITALS: BP 102/50; PULSE 74; RESP 18; TEMP 36.1; O2SAT 94
[2021-11-11 22:08] LABS: Glucose Point of Care 225 mg/dl (65-105)
[2021-11-12] VITALS (7 sets, daily range): BP systolic 100–120; BP diastolic 44–72; PULSE 64–89; RESP 16–20; TEMP 36.5–37.5; O2SAT 95–99
[2021-11-12] MEDS: ONDANSETRON INJ 4 MG/2 ML VIAL IV PUSH ×3 (01:00→17:35)
[2021-11-12] MEDS: DIPHENOXYLATE/ATROPINE (*CRX) 2.5 MG TABLET 1 TABLET PO ×3 (01:00→17:34)
[2021-11-12 06:42] LABS: Basophils Absolute Auto 0.1 K/mm3 (0.0-0.1); Basophils Percent Auto 0.5 % (0.2-1.2); Eosinophils Absolute Auto 0.3 K/mm3 (0-0.3); Eosinophils Percent Auto 2.6 % (0-4.4); Hematocrit 47.6 % (42.0-52.0); Hemoglobin 16.3 g/dL (14.0-18.0); Immature Granulocyte Absolute 0.23 K/mm3 (0.00-0.031); Immature Granulocyte Percent A 2.3 % (0-0.5); Lymphocytes Absolute Auto 1.81 K/mm3 (0.9-3.2); Lymphocytes Percent Auto 18.4 % (18.3-44.2); Mean Corpuscular HGB Conc 34.2 g/dl (32-36); Mean Corpuscular Hemoglobin 30.4 pg (26-34); Mean Corpuscular Volume 88.8 fl (80-100); Mean Platelet Volume 10.5 fl (7.4-10.4); Monocytes Absolute Auto 1.1 K/mm3 (0.1-0.6); Monocytes Percent Auto 11.4 % (2.6-8.5); Neutrophils Absolute Auto 6.4 K/mm3 (1.3-6.7); Neutrophils Percent Auto 64.8 % (45.5-73.1); Platelet Count Result 188 k/mm3 (150-375); Red Blood Count 5.36 M/mm3 (4.6-6.20); Red Cell Distribution Width 13.5 % (11.5-14.5); White Blood Count 9.8 K/mm3 (4.5-10.0)
[2021-11-12 06:59] LABS: Alanine Aminotransferase 12 U/L (6-50); Albumin Level 2.6 g/dL (3.5-5.1); Alkaline Phosphatase 30 U/L (38-126); Anion Gap 8 mmol/L (8-16); Aspartate Amino Transferase 13 U/L (17-59); Bilirubin,Total 0.6 mg/dL (0.2-1.3); Blood Urea Nitrogen 26 mg/dL (9-20); Carbon Dioxide 15 mmol/L (22-30); Chloride 108 mmol/L (98-107); Estimated CRCL calculation 66 ml/min; Estimated Glomerular Filt Rate 54; Glucose 177 mg/dL (65-110); Potassium 3.4 mmol/L (3.4-5.0); Sodium 131 mmol/L (137-145)
[2021-11-12 08:13] LABS: Glucose Point of Care 187 mg/dl (65-105)
[2021-11-12] MEDS: SERTRALINE HCL 25 MG TABLET PO (09:15)
[2021-11-12] MEDS: carvediloL 12.5 MG TABLET PO ×2 (09:15→17:34)
[2021-11-12] MEDS: SODIUM CHLORIDE 0.9% IV 1,000 ML 100 ML IV CONT ×2 (11:18→20:37)
[2021-11-12 12:07] LABS: Glucose Point of Care 204 mg/dl (65-105)
--- NOTE | 2021-11-12 15:38 | PM.IMPN ---
Progress Note: A&P Assessment and Plan (1) UTI (urinary tract infection): Code(s): N39.0 - Urinary tract infection, site not specified Status: Acute Assessment and Plan: Today, patient endorses burning with urination and difficulty initiating a stream. Urine culture showed group B strep. UA was abnormal in the ER with leuk esterase, more than 75 urine wbc's, heavy mucus, and CT showed bladder wall thickening. WBC 11 today. Levofloxacin started given patient's PCN allergy. Continue to trend infectious markers. (2) Vomiting and diarrhea: Code(s): R11.10 - Vomiting, unspecified; R19.7 - Diarrhea, unspecified Status: Acute Assessment and Plan: Patient presents with nausea, vomiting, and diarrhea since Saturday after his 1st dose of Ozempic on Saturday. Patient's ER labs were significant for mildly elevated lipase, which has since normalized. Patient continues to have persistent diarrhea. He did not eat any of his dinner. At this time it was thought that the likely cause is the patient Ozempic, vs UTI w/ GBS. A.m. labs Diet has been advanced and he has started to have some PO intake today. IV fluid resuscitation 100mls/hr will continue given his continued GI losses, hyponatremia, and worsened BUN after being in self-induced NPO status yesterday. Zofran added PRN for nausea- EKG showed no QT prolongation. C-Diff negative. Stool cultures pending. Blood cultures showed no growth. (3) Elevated lipase: Code(s): R74.8 - Abnormal levels of other serum enzymes Status: Acute Assessment and Plan: Lipase 304. CT showed no evidence of pancreatitis, levels in the colon consistent with diarrhea, no bowel obstruction, prostate enlargement and moderate thickening of the urinary bladder wall. Continue IVF Trend lipase Patient has continued nausea and vomiting. (4) Afib: Code(s): I48.91 - Unspecified atrial fibrillation Status: Acute Assessment and Plan: Patient with chronic AFIB on Rivaroxaban and carvedilol. He is well rate controlled at this time. EKG shows AFIB with normal rate. Will continue to monitor. Will continue home meds at this time (5) custodial current use of anticoagulant: Code(s): Z79.01 - terminal operations supervisor (current) use of anticoagulants Status: Acute Assessment and Plan: Rivaroxaban, will continue. (6) Type 2 diabetes mellitus with hyperglycemia, with long-term current use of insulin: Code(s): E11.65 - Type 2 diabetes mellitus with hyperglycemia; Z79.4 - custodial (current) use of insulin Status: Acute Assessment and Plan: Patient has is still not tolerating PO intake at this time, will hold insulin at this time until patient advances his diet. Accuchecks, mod dose SSI, diabetic diet once advanced. Continue to check and adjust insulin as diet is advanced. (7) Essential hypertension: Code(s): I10 - Essential (primary) hypertension Status: Acute Assessment and Plan: Holding lasix and spironolactone as patient was quite dry upon admission. Subjective Date/time seen: 11/12/21 15:38 Interval history: 76-year-old male with history of AFib, hypertension, diabetes, hypothyroidism, anxiety, who presents for nausea, vomiting, and diarrhea since Saturday after his first dose of Ozempic on Saturday. He continues to have diarrhea, but it is improving, and is slightly less loose today. His having some nausea, but it also has improved. He was able to tolerate his breakfast and ate about 50% of it. He continues to have poor PO intake, but this is is slowly improving. He denies blood in the stools, vomiting, abdominal pain, chest pain, shortness of breath, prabha syncope. Review of Systems Review of Systems: All systems reviewed & are unremarkable except as noted in HPI and below Exam Narrative: GENERAL APPEARANCE: Alert and oriented x 3, in no apparent distress. HEENT:
[2021-11-12 16:38] LABS: Glucose Point of Care 156 mg/dl (65-105)
[2021-11-12] MEDS: SODIUM CHLORIDE 500 MG TABLET PO (17:35)
[2021-11-12] MEDS: CALCIUM CARBONATE (OSCAL) 500 MG TABLET PO (17:35)
[2021-11-12] MEDS: traZODone HCL 50 MG TABLET 100 MG BY MOUTH (20:39)
[2021-11-12] MEDS: RIVAROXABAN 20 MG TABLET PO (20:39)
[2021-11-12] MEDS: INSULIN GLARGINE (*BKC) 100 UNITS/ML 60 UNITS SUB-Q (20:46)
[2021-11-12 23:22] LABS: Glucose Point of Care 158 mg/dl (65-105)
[2021-11-12] MEDS: FINASTERIDE 5 MG TABLET PO (23:47)
[2021-11-12] MEDS: SIMVASTATIN 20 MG TABLET PO (23:48)
[2021-11-13 06:00] VITALS: BP 108/50; PULSE 58; RESP 14; TEMP 36.9; O2SAT 97
[2021-11-13 06:15] LABS: Basophils Absolute Auto 0.1 K/mm3 (0.0-0.1); Basophils Percent Auto 0.5 % (0.2-1.2); Eosinophils Absolute Auto 0.5 K/mm3 (0-0.3); Eosinophils Percent Auto 4.7 % (0-4.4); Hematocrit 39.5 % (42.0-52.0); Hemoglobin 13.8 g/dL (14.0-18.0); Immature Granulocyte Absolute 0.22 K/mm3 (0.00-0.031); Immature Granulocyte Percent A 2.1 % (0-0.5); Lymphocytes Absolute Auto 2.23 K/mm3 (0.9-3.2); Lymphocytes Percent Auto 21.2 % (18.3-44.2); Mean Corpuscular HGB Conc 34.9 g/dl (32-36); Mean Corpuscular Hemoglobin 30.5 pg (26-34); Mean Corpuscular Volume 87.2 fl (80-100); Mean Platelet Volume 10.6 fl (7.4-10.4); Monocytes Absolute Auto 1.3 K/mm3 (0.1-0.6); Monocytes Percent Auto 12.6 % (2.6-8.5); Neutrophils Absolute Auto 6.2 K/mm3 (1.3-6.7); Neutrophils Percent Auto 58.9 % (45.5-73.1); Platelet Count Result 161 k/mm3 (150-375); Red Blood Count 4.53 M/mm3 (4.6-6.20); Red Cell Distribution Width 13.3 % (11.5-14.5); White Blood Count 10.5 K/mm3 (4.5-10.0)
[2021-11-13 06:20] LABS: Alanine Aminotransferase 11 U/L (6-50); Albumin Level 2.4 g/dL (3.5-5.1); Alkaline Phosphatase 32 U/L (38-126); Anion Gap 3 mmol/L (8-16); Aspartate Amino Transferase 13 U/L (17-59); Bilirubin,Total 0.5 mg/dL (0.2-1.3); Blood Urea Nitrogen 17 mg/dL (9-20); Carbon Dioxide 21 mmol/L (22-30); Chloride 111 mmol/L (98-107); Estimated CRCL calculation 93 ml/min; Estimated Glomerular Filt Rate > 60; Glucose 81 mg/dL (65-110); Sodium 135 mmol/L (137-145)
[2021-11-13 07:48] LABS: Glucose Point of Care 71 mg/dl (65-105)
--- NOTE | 2021-11-13 08:17 | PM.IMPN ---
Progress Note: A&P Assessment and Plan (1) Vomiting and diarrhea: Code(s): R11.10 - Vomiting, unspecified; R19.7 - Diarrhea, unspecified Status: Acute Assessment and Plan: Patient presents with nausea, vomiting, and diarrhea since Saturday after his 1st dose of Ozempic on Saturday. Patient's ER labs were significant for mildly elevated lipase, which has since normalized. Patient continues to have persistent voluminous diarrhea today, and his potassium was quite low. He was finally able to eat a full meal at breakfast today. I will add psyllium and probiotics to his regimen. Given continued liquid stools x 1 week, I have consulted GI on this patient and appreciate any additional recommendations. Continue current diet, add fiber/probiotic. IV fluid resuscitation 100mls/hr will continue given his continued GI losses. Zofran PRN for nausea- EKG showed no QT prolongation. C-Diff negative. Stool cultures pending. Blood cultures showed no growth. (2) UTI (urinary tract infection): Code(s): N39.0 - Urinary tract infection, site not specified Status: Acute Assessment and Plan: Patient endorsed burning with urination and difficulty initiating a stream. Urine culture showed group B strep. UA was abnormal in the ER with leuk esterase, more than 75 urine wbc's, heavy mucus, and CT showed bladder wall thickening. WBC 11 today. Levofloxacin day 3 today. Patient has a PCN allergy. WBC again slightly elevated today. (3) Elevated lipase: Code(s): R74.8 - Abnormal levels of other serum enzymes Status: Acute Assessment and Plan: Lipase [address] showed no evidence of pancreatitis, levels in the colon consistent with diarrhea, no bowel obstruction, prostate enlargement and moderate thickening of the urinary bladder wall. Continue IVF Trend lipase Patient has continued nausea and vomiting. (4) Afib: Code(s): I48.91 - Unspecified atrial fibrillation Status: Acute Assessment and Plan: Patient with chronic AFIB on Rivaroxaban and carvedilol. He is rate controlled at this time. Will continue to monitor. Will continue home meds (5) [facility] current use of anticoagulant: Code(s): Z79.01 - long term care administrator (current) use of anticoagulants Status: Acute Assessment and Plan: Rivaroxaban, will continue. (6) Type 2 diabetes mellitus with hyperglycemia, with long-term current use of insulin: Code(s): E11.65 - Type 2 diabetes mellitus with hyperglycemia; Z79.4 - [facility] (current) use of insulin Status: Acute Assessment and Plan: Patient is starting to tolerate PO intake. Glucose 81 today. Accuchecks, mod dose SSI, diabetic diet once advanced. Continue to check and adjust insulin as diet is advanced. (7) Essential hypertension: Code(s): I10 - Essential (primary) hypertension Status: Acute Assessment and Plan: Holding lasix and spironolactone as patient was quite dry upon admission, and continues to be normotensive as of 11/13. (8) Hypokalemia: Code(s): E87.6 - Hypokalemia Status: Acute Assessment and Plan: K 3.0 today. Likely due to ongoing GI losses. Will replenish with 40meq and recheck K in the evening. Plan Ca has been low at 7. Started OSCAL 500 BIDWM. Additional Plan Patient has been admitted as observation status. Subjective Date/time seen: 11/13/21 08:17 Interval history: 76-year-old male with history of AFib, hypertension, diabetes, hypothyroidism, anxiety, who presents for nausea, vomiting, and diarrhea since Saturday after his first dose of Ozempic on Saturday. He is having some nausea, but it also has improved. He was able to tolerate his breakfast today, but by the time of my exam, he had a pure liquid, voluminous stool. He denies fevers, chills, chest pain, shortness of breath. Review of Systems Review of Systems: All systems review
[2021-11-13 08:31] LABS: Lipase 151 U/L (23-300)
[2021-11-13] MEDS: POTASSIUM CHLORIDE 20 MEQ TABLET 40 MEQ PO (08:56)
[2021-11-13 08:57] VITALS: PULSE 55
[2021-11-13] MEDS: carvediloL 12.5 MG TABLET PO (08:57)
[2021-11-13] MEDS: SODIUM CHLORIDE 500 MG TABLET PO ×2 (08:57→17:42)
[2021-11-13] MEDS: CALCIUM CARBONATE (OSCAL) 500 MG TABLET PO ×2 (08:59→17:42)
[2021-11-13] MEDS: SERTRALINE HCL 25 MG TABLET PO (08:59)
[2021-11-13] MEDS: SODIUM CHLORIDE 0.9% IV 1,000 ML 100 ML IV CONT ×2 (09:00→18:53)
[2021-11-13 11:15] LABS: Glucose Point of Care 136 mg/dl (65-105)
--- NOTE | 2021-11-13 11:22 | PCPTNOTE ---
Spoke with RN patient was independent within the room without an assistive device. Spoke with patient, he stated that he does not have anything he would like assess and has been up moving within room. Hospitalist contacted and agreed to DC eval as long as care coordination didn't need eval. Per borough coordinator, patient does not need Evals for patient to return to [facility]. Orders discharged.
--- NOTE | 2021-11-13 12:05 | PCOTNOTE ---
Per Physical Therapist, who spoke with RN, patient was independent within the room without an assistive device. Spoke with patient, he stated that he does not have anything he would like assess and has been up moving within room. Hospitalist contacted and agreed to DC eval as long as care coordination didn't need eval. Per laboratory operations coordinator, patient does not need Evals for patient to return to [facility]. Orders to be canceled / discharged.
[2021-11-13] MEDS: SACCHAROMYCES BOULARDII 250 MG CAPSULE PO ×2 (13:40→17:42)
[2021-11-13 14:00] VITALS: BP 104/56; PULSE 52; RESP 19; TEMP 36.1; O2SAT 98
--- NOTE | 2021-11-13 15:18 | WPDGICN ---
Assessment and Plan Assessment and plan (1) Vomiting and diarrhea: Code(s): R11.10 - Vomiting, unspecified; R19.7 - Diarrhea, unspecified Status: Acute Assessment and Plan: Patient has vomiting and diarrhea that has been present for approximately 1 week. Now improving. The etiology for this is somewhat unclear. It began 1 week after taking a new medication, Ozempic, suggesting this may be intolerance of this new medication. Because of his profound reaction I would avoid this medication. It is also possible that vomiting and diarrhea related to his urinary tract infection. This is now improving while being placed on IV Levaquin. History of nausea vomiting diarrhea also raises the question of gastroenteritis which potentially could also be improving because of the Levaquin. Diabetes itself is known to cause delayed gastric emptying and diarrhea. Besides making patient more susceptible to infections. At this point however patient is tolerating diet dates diarrhea has improved to a significant degree. Would recommend completing course of antibiotics for a 7-10 day course. Advance diet as tolerated. No additional investigation appears warranted at this time. (2) Elevated lipase: Code(s): R74.8 - Abnormal levels of other serum enzymes Status: Acute Assessment and Plan: Elevated lipase noted at the time of him emergency room presentation but normalized the next day. Suggest this is spurious and likely related to his gastroenteritis. CT scan and fails to confer from pain otitis which appears unlikely given lack of tenderness and normal CT findings. No additional workup warranted. (3) Type 2 diabetes mellitus with hyperglycemia, with long-term current use of insulin: Code(s): E11.65 - Type 2 diabetes mellitus with hyperglycemia; Z79.4 - long term care phlebotomist (current) use of insulin Status: Acute Assessment and Plan: Diabetes of course raises the question of diabetic diarrhea. This could be long-term. If so this may improve with fiber supplementation. Strict control of diabetes and blood sugars are strongly encouraged. current Powell managed by primary care service (4) Afib: Code(s): I48.91 - Unspecified atrial fibrillation Status: Acute (5) long term care phlebotomist current use of anticoagulant: Code(s): Z79.01 - long term care phlebotomist (current) use of anticoagulants Status: Acute (6) UTI (urinary tract infection): Code(s): N39.0 - Urinary tract infection, site not specified Status: Acute Assessment and Plan: urinary tract infection now on Levaquin which may have the potential side benefit of treating any potential intestinal pathogens. (7) Congestive heart failure: Qualifiers: Heart failure type: systolic Heart failure chronicity: chronic Qualified Code(s): I50.22 - Chronic systolic (congestive) heart failure Code(s): I50.9 - Heart failure, unspecified Status: Acute (8) History of colon polyps: Code(s): Z86.010 - Personal history of colonic polyps Status: Acute Assessment and Plan: Colon polyps identified at time of endoscopy in 2019. Has also had previous history of polyps. If his medical condition allows continued follow-up at 5 year intervals encouraged GI Consult Note Consult date/time: 11/13/21 15:18 Reason for consult: Diarrhea HPI: Mark Gonzalez is a 76 year old male I am asked to see at the request of the hospitalist because of ongoing diarrhea. Patient is morbidly obese with a history of diabetes mellitus. He has underlying history of congestive heart failure and atrial fibrillation for which she is on chronic anticoagulation. Patient was started on Ozempic, One week prior to admission, in an attempt to decrease his use of insulin but also to hopefully aid with his weight loss attempts. patient reports 1 week ago he began to have nausea vomiting and diarrhea. He had rather significant freque
[2021-11-13 16:28] LABS: Glucose Point of Care 91 mg/dl (65-105)
[2021-11-13 17:16] LABS: Potassium 3.5 mmol/L (3.4-5.0)
[2021-11-13 20:00] VITALS: PULSE 61; RESP 18; O2SAT 97
[2021-11-13] MEDS: traZODone HCL 50 MG TABLET 100 MG BY MOUTH (20:43)
[2021-11-13] MEDS: PSYLLIUM SUGAR FREE POWDER PACKET 1 PACKET PO (20:43)
[2021-11-13] MEDS: RIVAROXABAN 20 MG TABLET PO (20:43)
[2021-11-13] MEDS: SIMVASTATIN 20 MG TABLET PO (20:43)
[2021-11-13] MEDS: FINASTERIDE 5 MG TABLET PO (20:44)
[2021-11-13 21:39] LABS: Glucose Point of Care 90 mg/dl (65-105)
[2021-11-13 22:00] VITALS: BP 108/50; PULSE 61; RESP 18; TEMP 36.1; O2SAT 97
[2021-11-14] MEDS: SODIUM CHLORIDE 0.9% IV 1,000 ML 100 ML IV CONT (05:29)
[2021-11-14 06:00] VITALS: BP 114/76; PULSE 55; RESP 18; TEMP 36.1; O2SAT 100
[2021-11-14 06:32] LABS: Basophils Absolute Auto 0.1 K/mm3 (0.0-0.1); Basophils Percent Auto 0.7 % (0.2-1.2); Eosinophils Absolute Auto 0.6 K/mm3 (0-0.3); Eosinophils Percent Auto 5.8 % (0-4.4); Hematocrit 39.3 % (42.0-52.0); Hemoglobin 13.5 g/dL (14.0-18.0); Immature Granulocyte Percent A 4.2 % (0-0.5); Lymphocytes Percent Auto 24.2 % (18.3-44.2); Mean Corpuscular HGB Conc 34.4 g/dl (32-36); Mean Corpuscular Hemoglobin 29.9 pg (26-34); Mean Corpuscular Volume 87.1 fl (80-100); Mean Platelet Volume 10.8 fl (7.4-10.4); Monocytes Percent Auto 10.6 % (2.6-8.5); Neutrophils Absolute Auto 5.2 K/mm3 (1.3-6.7); Neutrophils Percent Auto 54.5 % (45.5-73.1); Platelet Count Result 158 k/mm3 (150-375); Red Blood Count 4.51 M/mm3 (4.6-6.20); Red Cell Distribution Width 13.4 % (11.5-14.5); White Blood Count 9.5 K/mm3 (4.5-10.0)
[2021-11-14 06:45] LABS: Alanine Aminotransferase 14 U/L (6-50); Albumin Level 2.6 g/dL (3.5-5.1); Alkaline Phosphatase 35 U/L (38-126); Anion Gap 5 mmol/L (8-16); Aspartate Amino Transferase 21 U/L (17-59); Bilirubin,Total 0.4 mg/dL (0.2-1.3); Blood Urea Nitrogen 10 mg/dL (9-20); Calcium 7.4 mg/dL (8.4-10.2); Carbon Dioxide 20 mmol/L (22-30); Chloride 111 mmol/L (98-107); Estimated CRCL calculation 104 ml/min; Estimated Glomerular Filt Rate > 60; Glucose 78 mg/dL (65-110); Potassium 3.1 mmol/L (3.4-5.0); Sodium 136 mmol/L (137-145)
[2021-11-14 08:50] LABS: Glucose Point of Care 76 mg/dl (65-105)
[2021-11-14 08:51] VITALS: PULSE 64
[2021-11-14] MEDS: SACCHAROMYCES BOULARDII 250 MG CAPSULE PO ×2 (08:51→12:27)
[2021-11-14] MEDS: CALCIUM CARBONATE (OSCAL) 500 MG TABLET PO (08:51)
[2021-11-14] MEDS: SERTRALINE HCL 25 MG TABLET PO (08:51)
[2021-11-14] MEDS: carvediloL 12.5 MG TABLET PO (08:51)
[2021-11-14] MEDS: SODIUM CHLORIDE 500 MG TABLET PO (08:51)
--- NOTE | 2021-11-14 09:26 | PM.DS ---
DS: Admitting Diagnosis Discharge Date 11/14/2021 1600 Admitting Diagnosis Nausea/vomiting/diarrhea DS: Discharge Diagnosis Discharge Diagnosis (1) Vomiting and diarrhea: Code(s): R11.10 - Vomiting, unspecified; R19.7 - Diarrhea, unspecified Status: Acute Assessment and Plan: Patient presents with nausea, vomiting, and diarrhea since Saturday after his 1st dose of Ozempic on Saturday. Patient's ER labs were significant for mildly elevated lipase, which has since normalized. Patient continues to have persistent voluminous diarrhea today, and his potassium was quite low. He was finally able to eat a full meal at breakfast today. I will add psyllium and probiotics to his regimen. Given continued liquid stools x 1 week, I have consulted GI on this patient who advised likely differential included the new medication ozempic vs UTI vs gastroenterits. On the day of discharge patient tolerates PO intake and diarrhea has significantly reduced in frequency. We will continue the fiber/probiotic/abx treatment for an additional 4 days for his UTI with return precautions. Continue current diet, add fiber/probiotic. IV fluid resuscitation 100mls/hr will continue given his continued GI losses. Zofran PRN for nausea- EKG showed no QT prolongation. C-Diff negative. Stool cultures pending. Blood cultures showed no growth. (2) UTI (urinary tract infection): Code(s): N39.0 - Urinary tract infection, site not specified Status: Acute Assessment and Plan: Patient endorsed burning with urination and difficulty initiating a stream. Urine culture showed group B strep. UA was abnormal in the ER with leuk esterase, more than 75 urine wbc's, heavy mucus, and CT showed bladder wall thickening. Levofloxacin day 4 today. Will discharge with this to complete full course of treatment. WBC has normalized. (3) Elevated lipase: Code(s): R74.8 - Abnormal levels of other serum enzymes Status: Acute Assessment and Plan: Lipase [address] showed no evidence of pancreatitis, levels in the colon consistent with diarrhea, no bowel obstruction, prostate enlargement and moderate thickening of the urinary bladder wall. Likely due to prolonged nausea/vomiting. (4) Afib: Code(s): I48.91 - Unspecified atrial fibrillation Status: Acute Assessment and Plan: Patient with chronic AFIB on Rivaroxaban and carvedilol. He is rate controlled at this time. Will continue to monitor. Will continue home meds (5) longterm current use of anticoagulant: Code(s): Z79.01 - medical terminologist (current) use of anticoagulants Status: Acute Assessment and Plan: Rivaroxaban, will continue. (6) Type 2 diabetes mellitus with hyperglycemia, with long-term current use of insulin: Code(s): E11.65 - Type 2 diabetes mellitus with hyperglycemia; Z79.4 - longterm (current) use of insulin Status: Acute Assessment and Plan: Patient is now tolerating PO intake. Glucose 81 today. Accuchecks, mod dose SSI, diabetic diet, discharge with home medications, advise to D/C ozempic. (7) Essential hypertension: Code(s): I10 - Essential (primary) hypertension Status: Acute Assessment and Plan: Holding lasix as patient was quite dry upon admission, and continues to be normotensive as of 11/13. We will have him restart these after following up with his primary care. (8) Hypokalemia: Code(s): E87.6 - Hypokalemia Status: Acute Assessment and Plan: K 3.1 today. Likely due to ongoing GI losses. Will continue spironolactone at this time which will help with K. Will replenish with 40meq and recheck K in the evening, and follow up with repeat labs in 1 week. Plan Ca has been low, today corrected ca was 8.5. Patient stable at this time. DS: Summary Hospital Course Reason for hospitalization: Nausea/Vomiting/Diarrhea Hospital Course: See
[2021-11-14 12:26] LABS: Glucose Point of Care 108 mg/dl (65-105)
[2021-11-14] MEDS: POTASSIUM CHLORIDE 20 MEQ TABLET.ER 40 MEQ PO (12:27)
[2021-11-14] MEDS: DIPHENOXYLATE/ATROPINE (*CRX) 2.5 MG TABLET 1 TABLET PO (12:29)
--- NOTE | 2021-11-14 15:07 | WPDGIPROGNO ---
Progress Note: A&P Assessment and Plan (1) Vomiting and diarrhea: Code(s): R11.10 - Vomiting, unspecified; R19.7 - Diarrhea, unspecified Status: Acute Assessment and Plan: Vomiting and diarrhea both have improved. At this point no additional GI workup felt warranted. Differential for the etiology of this is broad but includes poor response to his recent medication as septic. Cannot exclude this is an infection which is improving. Symptoms seemed to improve when he was started on antibiotics for urinary tract infection. Additionally these may be symptoms of diabetes period with poor gastric emptying and diabetic diarrhea. Would recommend completing course of antibiotics. Advancing diet as tolerated to a good diabetic diet. Discharge when okay with primary care service. (2) History of colon polyps: Code(s): Z86.010 - Personal history of colonic polyps Status: Acute Assessment and Plan: Because of patient's prior history of colon polyps. Follow-up colonoscopy is a 5 year interval suggested. (3) UTI (urinary tract infection): Code(s): N39.0 - Urinary tract infection, site not specified Status: Acute (4) Congestive heart failure: Qualifiers: Heart failure type: systolic Heart failure chronicity: chronic Qualified Code(s): I50.22 - Chronic systolic (congestive) heart failure Code(s): I50.9 - Heart failure, unspecified Status: Acute (5) Type 2 diabetes mellitus with hyperglycemia, with long-term current use of insulin: Code(s): E11.65 - Type 2 diabetes mellitus with hyperglycemia; Z79.4 - [facility] (current) use of insulin Status: Acute (6) Afib: Code(s): I48.91 - Unspecified atrial fibrillation Status: Acute (7) Obesity: Code(s): E66.9 - Obesity, unspecified Status: Acute Subjective Date/time seen: 11/14/21 15:07 Patient doing well today. Tolerating diet. He states diarrhea has improved dramatically. Review of Systems Review of Systems: Review of systems noncontributory. Exam Narrative: Physical exam reveals patient be alert. Vital signs stable. HEENT exam reveals no icterus. Lungs are clear. Heart without murmur. Abdomen is quite obese. Bowel sounds are present soft nontender no organomegaly appreciated. Objective Data Vital Signs Vital Signs: Vital Signs - 24 hr 11/13/21 22:00 11/13/21 20:00 11/14/21 06:00 Temperature 97.0 F L 97.0 F L Pulse Rate 61 61 55 L Respiratory Rate 18 18 18 Blood Pressure 108/50 L 114/76 Pulse Oximetry 97 97 100 Oxygen Delivery Room Air 11/14/21 08:51 11/14/21 08:48 Temperature Pulse Rate 64 Respiratory Rate Blood Pressure Pulse Oximetry Oxygen Delivery Room Air Intake/Output Intake/Output: Intake & Output 11/11/21 11/12/21 11/13/21 11/14/21 23:59 23:59 23:59 23:59 Intake Total 2650 3340 4100 2040 Output Total 7 803 1640 1600 Balance 2643 2537 2460 440 Meds/Results Medications: Active Medications Generic Name Dose Route Start Last Admin Trade Name Freq PRN Reason Stop Dose Admin Calcium Carbonate 500 mg 11/12/21 17:00 11/14/21 08:51 Calcium Carbonate (Oscal) 500 Mg Tablet PO 500 mg BIDWM VIVIANE Administration Carvedilol 12.5 mg 11/10/21 09:00 11/14/21 08:51 Carvedilol 12.5 Mg Tablet PO 12.5 mg BID VIVIANE Administration Dextrose 12.5 gm 11/10/21 08:35 Dextrose 50% 25 Gm/50 Ml Syringe IV PUSH PRN PRN Hypoglycemia Protocol Diphenoxylate HCl/Atropine 1 tablet 11/11/21 03:33 11/14/21 12:29 Diphenoxylate/Atropine (*Crx) 2.5 Mg Tablet PO 1 tablet PRN PRN Administration Diarrhea Finasteride 5 mg 11/10/21 21:00 11/13/21 20:44 Finasteride 5 Mg Tablet PO 5 mg HS VIVIANE Administration Glucagon 1 mg 11/10/21 08:35 Glucagon For Inj 1 Mg Vial IM PRN PRN Hypoglycemia Protocol Glucose 15 gm 11/10/21 08:35 Glucose Oral Gel 15 Gm Of
[2021-11-14 16:15] LABS: Potassium 3.8 mmol/L (3.4-5.0)
[2021-11-14 16:34] LABS: EDCOVIDSCREEN Negative (Negative)
== END 2021-11-14 16:55 | DRG 690 ==
LOC: ANHED 20:52 → ANH3MEDSUR 21:06
PROVIDERS: Emergency Medicine; Physician Assistant; Student in an Organized Health Care Education/Training Program; Admitting Provider Internal Medicine; Emergency Provider Emergency Medicine; PCP Internal Medicine; Visit Provider Student in an Organized Health Care Education/Training Program
DX: N39.0 Urinary tract infection, site not specified (principal); I48.20 Chronic atrial fibrillation, unspecified; Z68.41 Body mass index [BMI] 40.0-44.9, adult; I50.22 Chronic systolic (congestive) heart failure; R11.10 Vomiting, unspecified; R19.7 Diarrhea, unspecified; T50.995A Adverse effect of other drugs, medicaments and biological substances, initial encounter; E66.01 Morbid (severe) obesity due to excess calories; I11.0 Hypertensive heart disease with heart failure; B95.1 Streptococcus, group B, as the cause of diseases classified elsewhere; E11.65 Type 2 diabetes mellitus with hyperglycemia; Z20.822 Contact with and (suspected) exposure to COVID-19; I10 Essential (primary) hypertension; E87.6 Hypokalemia; E86.0 Dehydration; E03.8 Other specified hypothyroidism; F41.9 Anxiety disorder, unspecified; J45.909 Unspecified asthma, uncomplicated; Z79.4 Long term (current) use of insulin; Z79.01 Long term (current) use of anticoagulants; Z86.010 Personal history of colon polyps
CPT/HCPCS: 36415; 71046; 74176; 80053; 81001; 82948; 83605; 83690; 83880; 84132; 84443; 85025; 85027; 87040; 87045; 87077; 87086; 87088; 87426; 87427; 87493; 87804; 93005; 96361; 96374; 96375; 99285; A9270; C9803; G0378; J0780; J1815; J1956; J2405; J7030; J7040

== ENCOUNTER → 2023-06-17 11:19 | Outpatient (CLI) | payer MEDICARE, SELFPAY ==
--- NOTE | ~2023-06-17 | XR_ITS ---
XR chest 2V DATE: 06/17/2023 11:45 INDICATION: Shortness of breath TECHNIQUE: 2 views COMPARISON: 11/09/2021 2 view chest FINDINGS: Normal heart size. Aortic arch calcification. No hilar or mediastinal enlargement. No pulmonary infiltrate or consolidation, pleural effusion or pulmonary vascular congestion or pneumo thorax. Degenerative spurring of the thoracic spine. IMPRESSION: No active cardiopulmonary disease Aortic atherosclerosis Reviewed, dictated and finalized at location B. COUNSELOR
== END ==
PROVIDERS: PCP Nurse Practitioner Family; Visit Provider Nurse Practitioner Family
DX: R06.02 Shortness of breath (principal); I70.0 Atherosclerosis of aorta
CPT/HCPCS: 71046